=== PATIENT | male | born 1995 | race African-American/Black ===

== ENCOUNTER 2024-02-10 17:31 | Emergency (ER) | payer OTHER ==
--- NOTE | 2024-02-10 18:37 | ED Physician Documentation ---
History of Present Illness - Stated complaint Stated Complaint: LT SIDE FACE PX - Chief complaint Chief Complaint: Trauma Hd/Nk - History obtained from History obtained from: Patient - Additonal information Additional information: This is a 28-year-old male who presents with left jaw pain and ear pain. He states symptoms started after he fell off a two-story roof A week ago. [place] [employer] [place]. He is not sure quite how he fell or how he landed and he is not sure if he lost consciousness. He states he did not seek care at that time but [place] with a compression fracture and was given a back brace. Since then, he has also noticed that his left jaw and mandible is uncomfortable and frequently popping and he feels as though there is popping and pain in his ear every time he opens his mouth. He has not had any ear drainage. Has not noted any swelling there, no cough or URI symptoms, Review of Systems Constitutional: reports: Reviewed and negative Eyes: reports: Reviewed and negative Ears: reports: Ear pain. denies: Drainage/discharge, Tinnitus/ringing Nose: reports: Reviewed and negative Throat: reports: Reviewed and negative Cardiac: reports: Reviewed and negative Respiratory: reports: Reviewed and negative GI: reports: Reviewed and negative : reports: Reviewed and negative Skin: reports: Reviewed and negative Musculoskeletal: reports: Back pain. denies: Neck pain, Extremity pain, Joint pain Neurologic: reports: Reviewed and negative Psychiatric: reports: Reviewed and negative Endocrine: reports: Reviewed and negative PD PAST MEDICAL HISTORY - Past Medical History Past Medical History: Yes Cardiovascular: None Respiratory: None Neuro: None Endocrine/Autoimmune: None GI: None : None HEENT: None Psych: None Musculoskeletal: None Derm: None Other Past Medical History: compression fracture in L-spine - Past Surgical History Past Surgical History: Yes General: Appendectomy - Present Medications Home Medications: Ambulatory Orders Medication Instructions Recorded Confirmed No Known Home Medications 02/10/24 02/10/24 - Allergies Allergies/Adverse Reactions: Allergies Allergy/AdvReac Type Severity Reaction Status Date / Time No Known Drug Allergies Allergy Verified 02/10/24 17:38 - Social History Does the pt smoke?: No Smoking Status: Never smoker Does the pt drink ETOH?: No Does the pt have substance abuse?: No - Immunizations Immunizations are current?: Yes - POLST Patient has POLST: No PD ED PE NORMAL - General General: Alert and oriented X 3, No acute distress - HEENT HEENT: Atraumatic, PERRL, EOMI, Ears normal, Moist mucous membranes, Pharynx benign, Dentition benign, Other (Tender left TMJ and left mandible without obvious deformity or dislocation. Mild trismus) - Neck Neck: Supple, no meningeal sign, No bony TTP, C-Spine cleared by NEXUS criteria - Cardiac Cardiac: RRR, No murmur - Respiratory Respiratory: No respiratory distress, Clear bilaterally - Abdomen Abdomen: Normal bowel sounds, Soft, Non tender, Non distended - Derm Derm: Normal color, Warm and dry, No rash - Extremities Extremities: No deformity, No tenderness to palpate, Normal ROM s pain, No edema - Neuro Neuro: Alert and oriented X 3 Eye Opening: Spontaneous Motor: Obeys Commands Verbal: Oriented GCS Score: 15 Results - Vitals Vitals: Vital Signs - 24 hr 02/10/24 17:40 Temperature 36.9 C Heart Rate 82 Respiratory 16 Rate Blood Pressure 118/72 O2 Saturation 100 Oxygen O2 Source Room air PD Medical Decision Making - ED course Complexity details: reviewed results, re-evaluated patient, considered differential, d/w patient ED course: 28-year-old male presented with left to jaw and left ear pain as described in HPI. This occurred after a fall from a roof a few days ago. Patient is very well-appearing here on physical exam, and appears to have no traumatic injuries but tells me that he does have a compression fracture in his lumbar spine that was evaluated in outpatient setting. On exam, he does have some tenderness over the left TMJ, his TM of the left ear appears normal however and there is no obvious trauma to this area but tenderness with palpation. Given the mechanism of injury, there is high risk for injury therefore I did obtain a CT of this area which thankfully is negative. I discussed with patient he likely has soft tissue trauma in the area and recommended supportive measures including ibuprofen, Tylenol cold and warm compress and follow-up outpatient with dental her PCP. Patient discharged home in stable condition. Departure - Departure Disposition: 01 Home, Self Care Clinical Impression: Temporomandibular joint (TMJ) pain Qualifiers: Laterality: left Qualified Code(s): M26.622 - Arthralgia of left temporomandibular joint Condition: Good Instructions: ED TMJ Syndrome Comments: Your CT scan does not show any broken bones or dislocation in the face or jaw area. You do have some pain over the tendon below mandibular joint and I think this is likely from the fall causing some inflammation in that area. You can use a warm or cold compress, take ibuprofen or Tylenol as needed. Please continue outpatient follow-up for your low back symptoms. Forms: PCP List
--- NOTE | 2024-02-10 19:12 | CT Report ---
PROCEDURE: Maxillofacial WO INDICATIONS: left mandible pain after falling off roof TECHNIQUE: Helical axial CT of the facial structures and mandible were obtained without intravenous contrast and reformatted in multiple planes. Radiation dose reduction was achieved using automated e xposure control and adjustment of mA and/or kV according to patient size. COMPARISON: None. FINDINGS: Maxillofacial Bones: The zygomaticomaxillary complex is intact. The pterygoid plates and skull base are unremarkable. No evidence of fracture or lytic lesion. Mandible: The mandible is intact without fracture. Unremarkable temporomandibular articulation. Dentition: Unremarkable mandibular and maxillary dentition. Soft tissues: No maxillofacial soft tissue swelling. No radiopaque foreign bodies. Orbits: The osseous orbits, globes and ocular muscles unremarkable. Sinuses and Mastoid: The visualized portion of the paranasal sinuses and mastoids are normal. No air -fluid levels or wall fractures. The nasal vault is unremarkable. IMPRESSION: Unremarkable maxillofacial CT without contrast Reviewed by: Fercho Arroyo MD on 02/10/2024 6:10 PM VI[facility] HUGO Approved by: Fercho Arroyo MD on 02/10/2024 6:10 PM [facility] Station ID: [id number]
[2024-02-10 19:24] VITALS: BP 115/71; O2SAT 99
== END 2024-02-10 19:20 | disposition home or self-care (01) ==
LOC: ED 17:31
DX: M26.622 Arthralgia of left temporomandibular joint (principal); W13.2XXA Fall from, out of or through roof, initial encounter; Y92.139 Unspecified place military base as the place of occurrence of the external cause
CPT/HCPCS: 99283; 99284